=== PATIENT | female | born 1970 | race African-American/Black ===

== ENCOUNTER 2019-10-24 14:07 | Emergency (ER) | payer OTHER ==
[~2019-10-24] VITALS: Ht 175.3 cm; Wt 101.2 kg
[~2019-10-24 14:07] MED LIST: AMLODIPINE BESY10 MG PO; ASPIR 8181 MG PO; CARVEDILOL12.5 MG PO; GLUCOTROL5 MG PO; HYDROCHLOROTH12.5 M1 PO; KLOR-CON-EF 2525 ME1 PO; LIPITOR 20 MG T20 M1 PO; NORCO 5-325 TA1 EACH PO; POTASSIUM20 PO; ZOFRAN ODT4 MG DISSOLVE; ZOFRAN ODT4 MG SUBLING
[2019-10-24] MEDS ORDERED: OZEMPIC0.25 MG/0. SUBQ (14:28)
[2019-10-24] MEDS ORDERED: VITAMIN D3250 MC1 PO (14:29)
[2019-10-24 14:41] LABS: BASOPHILS 0.9 % (0.0-2.0); EOSINOPHILS 0.3 % (0.0-3.0); HEMOGLOBIN 13.1 gm/dL (12.0-15.0); LYMPHOCYTES 51.1 % (24.0-44.0); MCH 28.3 pg (26.0-34.0); MCHC 33.6 g/dL (28.0-37.0); MCV 84.3 fL (80.0-100.0); MONOCYTES 6.3 % (1.0-8.0); POLYS 41.4 % (36.0-66.0); RBC 4.63 mil/uL (4.20-5.00); RDW 14.8 % (10.5-14.5); WBC 4.8 thou/uL (4.0-11.0)
[2019-10-24 14:43] LABS: URINE BILIRUBIN NEGATIVE (Negative); URINE BLOOD 2+ (Negative); URINE CLARITY CLEAR; URINE COLOR YELLOW; URINE GLUCOSE-RANDOM* NEGATIVE (Negative); URINE KETONES NEGATIVE (Negative); URINE LEUKOCYTES-REFLEX NEGATIVE (Negative); URINE NITRITE-REFLEX NEGATIVE (Negative); URINE PROTEIN (DIPSTICK) NEGATIVE (Negative); URINE SPECIFIC GRAVITY <= 1.005 (1.005-1.035); URINE UROBILINOGEN 0.2 E.U./dl (0.2-1.0)
[2019-10-24 14:49] LABS: SQUAMOUS 4-10 Moderate /LPF (0-3)
[2019-10-24 14:50] LABS: BACTERIA-REFLEX >30 Many /HPF (None Seen); CASTS None Seen /LPF (None Seen); CRYSTALS None Seen /LPF (None Seen); URINE RBC 0-2 Rare /HPF (0-2); URINE WBC-REFLEX None Seen /HPF (0-5)
[2019-10-24 14:57] LABS: ALBUMIN 3.8 g/dL (3.4-5.0); CREATININE 0.9 mg/dL (0.6-1.0); TOTAL BILIRUBIN 1.2 mg/dL (0.2-1.0); TOTAL PROTEIN 9.6 g/dL (6.4-8.2)
[2019-10-24 14:58] LABS: POTASSIUM 2.8 mmol/L (3.5-5.1)
[2019-10-24 15:14] LABS: PLATELET COUNT 227 thou/uL (150-400)
[2019-10-24] MEDS ORDERED: ZOFRAN ODT4 MG PO (15:57)
[2019-10-24 16:31] VITALS: BP 155/92
== END 2019-10-24 16:34 | disposition home or self-care (01) ==
LOC: ER 14:07
PROVIDERS: Nurse Practitioner Family
DX: F10.10 Alcohol abuse, uncomplicated (principal); R11.2 Nausea with vomiting, unspecified; E87.6 Hypokalemia; R94.5 Abnormal results of liver function studies; E66.9 Obesity, unspecified; I10 Essential (primary) hypertension; E11.9 Type 2 diabetes mellitus without complications; Z79.899 Other long term (current) drug therapy; Z79.82 Long term (current) use of aspirin; Z98.51 Tubal ligation status; Z90.89 Acquired absence of other organs; Y90.9 Presence of alcohol in blood, level not specified